=== PATIENT | female | born 1985 | race Two or more races ===

== ENCOUNTER 2023-10-21 16:54 | Emergency (ER) | payer OTHER ==
[~2023-10-21] VITALS: Ht 165.1 cm; Wt 122.5 kg
[2023-10-21] MEDS ORDERED: BUPROPION XL450 MG (17:10)
[2023-10-21] MEDS ORDERED: INDERAL XL80 MG (17:10)
[2023-10-21] MEDS ORDERED: MIDODRINE HCL2.5 MG (17:10)
== END 2023-10-21 23:36 | disposition home or self-care (01) ==
LOC: ER 16:55
DX: S09.8XXA Other specified injuries of head, initial encounter (principal); W18.39XA Other fall on same level, initial encounter; Y93.89 Activity, other specified; Y92.89 Other specified places as the place of occurrence of the external cause; Z91.018 Allergy to other foods; R51.9 Headache, unspecified

== ENCOUNTER 2024-09-03 10:04 | Outpatient (CLI) | payer OTHER ==
[~2024-09-03 10:04] MED LIST: BUPROPION XL450 MG; INDERAL XL80 MG; MIDODRINE HCL2.5 MG
== END 2024-09-03 10:13 | disposition home or self-care (01) ==
LOC: SONOGRAMA 10:04
PROVIDERS: ATTEND Otolaryngology
DX: R22.1 Localized swelling, mass and lump, neck (principal)